=== PATIENT | female | born 1965 | race African-American/Black ===

== ENCOUNTER 2016-12-21 15:55 | Emergency (ER) | payer MEDICARE, MEDICAID ==
--- NOTE | 2016-12-21 16:59 | RAD ---
THREE VIEWS OF THE LUMBAR SPINE 12/21/16 INDICATION: Fall with back pain. COMPARISON: Prior exam dated 07/02/14. FINDINGS: No acute fracture or subluxation is evident. There is a grade I anterolisthesis of L4 on L5 which is likely degenerative in nature. There is multilevel disc degenerative and facet osteoarthritic leong e. There is scattered vascular calcification. Partially calcified cyst involving the inferior pole o f the right kidney is seen right of midline at L3-4. IMPRESSION: 1. No acute osseous abnormality. 2. Multilevel spondylosis of the lumbar spine. POS: [facility]
== END 2016-12-21 16:53 | disposition home or self-care (01) ==
LOC: NAV ERS 15:55
DX: M54.5 Low back pain (principal); I12.0 Hypertensive chronic kidney disease with stage 5 chronic kidney disease or end stage renal disease; N18.6 End stage renal disease
CPT/HCPCS: 72100

== ENCOUNTER 2017-01-24 16:40 | Emergency (ER) | payer MEDICARE, OTHER ==
[2017-01-24 18:59] LABS: #Eosinphils 0.3 thou/uL (0.0-0.7); #Lymphocytes 1.3 thou/uL (1.20-3.40); #Monocytes 0.5 thou/uL (0.11-0.59); %Basophils 0.7 % (0.0-1.0); %Eosinophils 5.8 % (0.0-10.0); %Lymphocytes 25.7 % (21.0-51.0); %Neutrophils 58.9 % (42.0-75.0); Hemoglobin 10.2 g/dL (12.0-16.0); Mean Corpuscular HGB CONC 30.7 g/dL (32.0-36.0); Mean Corpuscular Hemoglobin 27.5 pg (27.0-31.0); Mean Corpuscular Volume 89.5 fl (81.0-99.0); Mean Platelet Volume 7.2 fL (7.4-10.4); Platelet Count 210 thou/uL (130-400); RBC Distribution Width 16.8 % (11.5-14.5); White Blood Cell (WBC) Count 5.1 thou/uL (4.8-10.8)
[2017-01-24 19:06] LABS: INR-International Normal Ratio 1.4; PTT 31.6 SEC (22.9-36.1); Prothrombin Time 17.8 SEC (12.0-14.7)
[2017-01-24 19:12] LABS: Anion Gap 17 mmol/L (10-20); BUN (Urea Nitrogen) 38 mg/dL (9.8-20.1); Calc. Creatinine Clearance 0 mL/min (70-130); Calcium 8.1 mg/dL (7.8-10.44); Carbon Dioxide 29 mmol/L (22-29); Chloride 99 mmol/L (98-107); Estimated GFR-MDRD 6; Glucose 71 mg/dL (70-105); Sodium 140 mmol/L (136-145)
== END 2017-01-24 21:00 | disposition short-term general hospital (02) ==
LOC: NAV ERS 16:40
DX: K92.2 Gastrointestinal hemorrhage, unspecified (principal); D68.9 Coagulation defect, unspecified; I12.0 Hypertensive chronic kidney disease with stage 5 chronic kidney disease or end stage renal disease; N18.6 End stage renal disease
CPT/HCPCS: 36415; 80048; 82274; 85025; 85610; 85730; 99285

== ENCOUNTER 2017-09-02 13:46 | Emergency (ER) | payer MEDICARE, MEDICAID ==
[2017-09-02 15:57] LABS: #Eosinphils 0.1 thou/uL (0.0-0.7); #Lymphocytes 1.1 thou/uL (1.20-3.40); #Monocytes 0.5 thou/uL (0.11-0.59); #Neutrophils 4.8 thou/uL (1.40-6.50); %Basophils 0.6 % (0.0-1.0); %Monocytes 7.8 % (0.0-10.0); %Neutrophils 72.5 % (42.0-75.0); Hemoglobin 11.5 g/dL (12.0-16.0); Mean Corpuscular HGB CONC 29.7 g/dL (32.0-36.0); Mean Corpuscular Volume 94.3 fl (81.0-99.0); Mean Platelet Volume 7.4 fL (7.4-10.4); Platelet Count 230 thou/uL (130-400); RBC Distribution Width 15.8 % (11.5-14.5); Red Blood Cell (RBC) Count 4.11 mill/uL (4.20-5.40); White Blood Cell (WBC) Count 6.6 thou/uL (4.8-10.8)
== END 2017-09-02 16:16 | disposition home or self-care (01) ==
LOC: NAV ERS 13:46
DX: R21 Rash and other nonspecific skin eruption (principal); I12.0 Hypertensive chronic kidney disease with stage 5 chronic kidney disease or end stage renal disease; N18.6 End stage renal disease; Z99.2 Dependence on renal dialysis
CPT/HCPCS: 85025; 86140; 99283

== ENCOUNTER 2017-10-20 20:30 | Emergency (ER) | payer MEDICARE, OTHER | END 2017-10-20 21:00 | disposition home or self-care (01) | LOC: NAV ERS 20:30 | DX: R21 Rash and other nonspecific skin eruption (principal); I12.0 Hypertensive chronic kidney disease with stage 5 chronic kidney disease or end stage renal disease; N18.6 End stage renal disease; Z99.2 Dependence on renal dialysis; Z79.01 Long term (current) use of anticoagulants; Z79.82 Long term (current) use of aspirin; Z79.899 Other long term (current) drug therapy | CPT/HCPCS: 99283 ==

== ENCOUNTER 2017-12-02 19:45 | Emergency (ER) | payer MEDICARE, MEDICAID ==
[2017-12-02 20:58] LABS: #Eosinphils 0.2 thou/uL (0.0-0.7); #Lymphocytes 0.7 thou/uL (1.20-3.40); #Monocytes 0.4 thou/uL (0.11-0.59); #Neutrophils 5.2 thou/uL (1.40-6.50); %Basophils 0.7 % (0.0-1.0); %Eosinophils 2.9 % (0.0-10.0); %Lymphocytes 10.8 % (21.0-51.0); %Monocytes 6.8 % (0.0-10.0); %Neutrophils 78.7 % (42.0-75.0); Mean Corpuscular HGB CONC 29.6 g/dL (32.0-36.0); Mean Corpuscular Hemoglobin 26.2 pg (27.0-31.0); Mean Corpuscular Volume 88.3 fl (81.0-99.0); Mean Platelet Volume 8.8 fL (7.4-10.4); Platelet Count 205 thou/uL (130-400); RBC Distribution Width 16.1 % (11.5-14.5); Red Blood Cell (RBC) Count 4.97 mill/uL (4.20-5.40); White Blood Cell (WBC) Count 6.5 thou/uL (4.8-10.8)
[2017-12-02 22:25] LABS: PLT Morphology Comment Appears Adequate; RBC Morphology Normal
== END 2017-12-02 21:15 | disposition home or self-care (01) ==
LOC: NAV ERS 19:45
DX: L03.116 Cellulitis of left lower limb (principal); L03.115 Cellulitis of right lower limb; I12.0 Hypertensive chronic kidney disease with stage 5 chronic kidney disease or end stage renal disease; N18.6 End stage renal disease; K21.9 Gastro-esophageal reflux disease without esophagitis; Z79.82 Long term (current) use of aspirin; Z79.899 Other long term (current) drug therapy; Z79.01 Long term (current) use of anticoagulants; Z99.2 Dependence on renal dialysis
CPT/HCPCS: 85025; 85652; 87040; 99283

== ENCOUNTER 2018-03-30 19:12 | Emergency (ER) | payer MEDICARE, OTHER ==
[2018-03-30] MEDS ORDERED: Lidocaine 1% 20 ML MDV ONE (19:24)
== END 2018-03-30 19:59 | disposition home or self-care (01) ==
LOC: NAV ERS 19:12
DX: L02.11 Cutaneous abscess of neck (principal); I12.0 Hypertensive chronic kidney disease with stage 5 chronic kidney disease or end stage renal disease; N18.6 End stage renal disease; K21.9 Gastro-esophageal reflux disease without esophagitis; Z99.2 Dependence on renal dialysis; Z79.82 Long term (current) use of aspirin; Z79.01 Long term (current) use of anticoagulants; Z79.899 Other long term (current) drug therapy
CPT/HCPCS: 10060; J2001

== ENCOUNTER 2018-04-01 18:25 | Emergency (ER) | payer MEDICARE, OTHER | END 2018-04-01 19:02 | disposition home or self-care (01) | LOC: NAV ERS 18:25 | DX: Z48.817 Encounter for surgical aftercare following surgery on the skin and subcutaneous tissue (principal); I10 Essential (primary) hypertension; K21.9 Gastro-esophageal reflux disease without esophagitis; I12.0 Hypertensive chronic kidney disease with stage 5 chronic kidney disease or end stage renal disease; N18.6 End stage renal disease; Z99.2 Dependence on renal dialysis; Z79.82 Long term (current) use of aspirin; Z79.01 Long term (current) use of anticoagulants; Z79.899 Other long term (current) drug therapy | CPT/HCPCS: 99282 ==

== ENCOUNTER 2018-06-30 11:56 | Emergency (ER) | payer MEDICARE, OTHER, MEDICAID ==
--- NOTE | 2018-06-30 13:09 | RAD ---
CHEST 2 VIEWS: HISTORY: Cough. FINDINGS: Cardiac silhouette and pulmonary vasculature are upper limits of normal. Mediastinum is midline with aortic calcification. No lobar consolidation, pneumothorax, or pleural fluid. Radiopaque stents ov erlie the left brachial vessels. IMPRESSION: 1. No active cardiopulmonary abnormalities are demonstrated. 2. Atherosclerosis. POS: [facility]
== END 2018-06-30 13:08 | disposition home or self-care (01) ==
LOC: NAV ERS 11:56
DX: J30.9 Allergic rhinitis, unspecified (principal); I12.0 Hypertensive chronic kidney disease with stage 5 chronic kidney disease or end stage renal disease; N18.6 End stage renal disease; K21.9 Gastro-esophageal reflux disease without esophagitis; Z99.2 Dependence on renal dialysis; Z79.01 Long term (current) use of anticoagulants; Z79.82 Long term (current) use of aspirin; Z79.899 Other long term (current) drug therapy
CPT/HCPCS: 71046; 93005

== ENCOUNTER 2018-10-15 11:52 | Emergency (ER) | payer MEDICARE, MEDICAID | END 2018-10-15 12:42 | disposition home or self-care (01) | LOC: NAV ERS 11:52 | DX: L29.9 Pruritus, unspecified (principal); K21.9 Gastro-esophageal reflux disease without esophagitis; I12.0 Hypertensive chronic kidney disease with stage 5 chronic kidney disease or end stage renal disease; N18.6 End stage renal disease; Z99.2 Dependence on renal dialysis; Z79.01 Long term (current) use of anticoagulants; Z79.899 Other long term (current) drug therapy; Z79.82 Long term (current) use of aspirin | CPT/HCPCS: 99282 ==

== ENCOUNTER 2019-05-24 20:57 | Emergency (ER) | payer MEDICARE, MEDICAID ==
[2019-05-24] MEDS ORDERED: Sodium Chloride 0.9% 3,000 ML ONE (23:18)
== END 2019-05-25 00:06 | disposition expired ==
LOC: NAV ERS 20:57
DX: I46.9 Cardiac arrest, cause unspecified (principal); K21.9 Gastro-esophageal reflux disease without esophagitis; I12.0 Hypertensive chronic kidney disease with stage 5 chronic kidney disease or end stage renal disease; N18.6 End stage renal disease
CPT/HCPCS: 31500; 36430; 36680; 82962; 86850; 86900; 86901; 86920; 92950; 94760; 99285; P9016; 36416; J7050